=== PATIENT | female | born 1965 | race Caucasian/White ===

== ENCOUNTER 2020-02-23 19:55 | Emergency (ER) | payer MEDICAID ==
[~2020-02-23] VITALS: Ht 165.1 cm; Wt 81.4 kg
--- NOTE | 2020-02-23 20:28 | NUR ---
THIS IS A 54 YO FEMALE PRESENTING TO THE ER FOR THE FOLLOWING COMPLAINTS "I HAVE HERPES SIMPLEX 2 AND I'VE HAD INTERMITTENT FLARE UPS AND I'M OUT OF MY VALTREX FOR A LITTLE BIT. I GOT TO [place] LONG AGO FROM [place] AND HAVEN'T ESTABLISHED A PRIMARY CARE DOCTOR. I AM ALSO OUT OF MY LEVOTHYROXINE, I'VE BEEN RATIONING IT, I HAVE HYPOTHYROIDISM AND GRAVE'S DISEASE. I'M ALSO OUT OF MY LISINOPRIL AND GABAPENTIN, I HAVE FIBROMYALGIA SO THE GABAPENTIN HELPS WITH THE HERPES AND FIBROMYALGIA. I ALSO HAVE SOME LOW BACK PAIN AND HEARTBURN". PATIENT ALSO C/O INTERMITTENT NAUSEA, DIARRHEA YESTERDAY. A&OX4, PATIENT STATES "I JUST NEED TO GET SOME OF MY MEDICATIONS". SPO2 AND BP MONITORING IN PLACE, ANDREW SINGH AT THIS TIME, CALL LIGHT IN REACH. BRIGETTE POSADAS TO ROOM
[2020-02-23] MEDS ORDERED: GABA300C10 PO (20:40)
[2020-02-23] MEDS ORDERED: VALA10004 PO (20:40)
[2020-02-23] MEDS ORDERED: LEVO150T5 PO (20:44)
[2020-02-23] MEDS ORDERED: VENL75CA PO (20:45)
[2020-02-23] MEDS ORDERED: LISI5TAB7 PO (20:45)
[2020-02-23 20:48] VITALS: BP 157/100
--- NOTE | 2020-02-23 20:50 | NUR ---
ALL MONITORING IN PLACE, NSR ON BOARD FINISHER. PATIENT BACK FROM XRAY AT THIS TIME
[2020-02-23 21:01] LABS: BASOPHILS # (AUTO) 0.08 x10^3/uL (0-0.1); BASOPHILS % (AUTO) 1 % (0-1); EOSINOPHILS # (AUTO) 0.22 x10^3/uL (0-0.4); EOSINOPHILS % (AUTO) 3 % (1-7); LYMPHOCYTES % (AUTO) 26 % (22-44); MD NO; MEAN CORPUSCULAR HEMOGLOBIN 30.7 pg (27.0-34.8); MEAN CORPUSCULAR VOLUME 90.1 fL (80-100); MEAN PLATELET VOLUME 8.4 fL (7.4-10.4); MONOCYTES # (AUTO) 0.44 x10^3/uL (0.2-0.8); MONOCYTES % (AUTO) 6 % (2-9); NEUTROPHILS # (AUTO) 4.72 x10^3/uL (1.8-6.8); NEUTROPHILS % (AUTO) 64 % (42-75); PLATELET COUNT 302 x10^3/uL (130-400); RED BLOOD COUNT 4.36 x10^6/uL (3.82-5.3); RED CELL DISTRIBUTION WIDTH 13.4 % (9.6-15.2)
[2020-02-23 21:09] LABS: ALANINE AMINOTRANSFERASE 26 U/L (12-78); ALBUMIN 3.9 g/dL (3.4-5.0); ANION GAP 9 mmol/L (5-15); CHLORIDE 106 mmol/L (98-107); CREATININE 0.81 mg/dL (0.55-1.02)
[2020-02-23 21:14] LABS: ALKALINE PHOSPHATASE 88 U/L (45-117); BILIRUBIN,TOTAL 0.3 mg/dL (0.2-1.0); TOTAL PROTEIN 7.6 g/dL (6.4-8.2); TROPONIN I < 0.015 ng/mL (0.000-0.045)
--- NOTE | 2020-02-23 22:48 | NUR ---
Patient/Caregiver given discharge instructions and they have confirmed that they understand the instructions. Patient ambulatory with steady gait.
== END 2020-02-23 22:50 | disposition home or self-care (01) ==
LOC: EDBD 19:55 → ED 21:14
DX: R10.84 Generalized abdominal pain (principal); R07.89 Other chest pain; B00.9 Herpesviral infection, unspecified; Z76.0 Encounter for issue of repeat prescription; R06.00 Dyspnea, unspecified; F17.210 Nicotine dependence, cigarettes, uncomplicated; I10 Essential (primary) hypertension; E03.9 Hypothyroidism, unspecified; Z72.9 Problem related to lifestyle, unspecified
CPT/HCPCS: 36415; 71046; 80053; 83690; 84443; 84484; 85025; 93005; 99406